=== PATIENT | female | born 1950 | race Caucasian/White ===

== ENCOUNTER → 2016-11-01 | Outpatient (CLI) | payer MEDICARE, OTHER | END | disposition home or self-care (01) | LOC: CDC 11:12 | DX: D17.1 Benign lipomatous neoplasm of skin and subcutaneous tissue of trunk (principal) | CPT/HCPCS: 93000 ==

== ENCOUNTER 2016-11-11 06:30 | Day surgery (SDC) | payer OTHER ==
[~2016-11-11] VITALS: Ht 160 cm; Wt 105.0 kg
[~2016-11-11 06:30] MED LIST: ASPIR 8181 M1 PO; CYMBALTA60 MG PO; LEVO-T150 MCG PO; MOBIC15 MG PO; OMEPRAZOLE40 M1 PO; SUPER B-50 COM1 EACH PO; TOPROL XL50 MG PO; VITAMIN D-32000 UNI2 PO; ZOCOR20 MG PO; ZYRTEC10 M3 PO
[2016-11-11] MEDS ORDERED: TENSION HEADAC1 EACH PO (07:45)
[2016-11-11 07:50] VITALS: BP 134/72
[2016-11-11] MEDS ORDERED: NORCO 5/3251 TABLET PO (09:35)
[2016-11-11 10:42] VITALS: BP 131/78
[2016-11-11 11:27] VITALS: BP 120/75
== END 2016-11-11 11:32 | disposition home or self-care (01) ==
LOC: SDC
PROC: 0JB70ZZ Excision of Back Subcutaneous Tissue and Fascia, Open Approach (ICD-10-PCS; principal; 2016-11-11)
DX: D17.1 Benign lipomatous neoplasm of skin and subcutaneous tissue of trunk (principal); E78.5 Hyperlipidemia, unspecified; E03.9 Hypothyroidism, unspecified; G47.30 Sleep apnea, unspecified; I10 Essential (primary) hypertension; K21.9 Gastro-esophageal reflux disease without esophagitis; E66.9 Obesity, unspecified; Z68.41 Body mass index [BMI] 40.0-44.9, adult; Z86.718 Personal history of other venous thrombosis and embolism; Z86.711 Personal history of pulmonary embolism; Z79.82 Long term (current) use of aspirin; Z83.3 Family history of diabetes mellitus; Z82.49 Family history of ischemic heart disease and other diseases of the circulatory system; Z82.61 Family history of arthritis; Z82.0 Family history of epilepsy and other diseases of the nervous system; Z80.8 Family history of malignant neoplasm of other organs or systems
CPT/HCPCS: 88304; J0690; J1100; J2250; J2405; J3010